=== PATIENT | female | born 1990 | race Hispanic/Latino ===

== ENCOUNTER 2020-02-21 02:06 | Inpatient (IN) | payer SELFPAY ==
[2020-02-21 02:57] LABS: Absolute Lymphocytes (CBC) 0.4 K/uL (0.7-4.9); Basophils % 0.2 % (0-1.3); Hematocrit 38.7 % (36.0-45.0); Lymphocytes % 3.3 % (15.3-44.8); MPV 7.2 fL (7.6-11.3); RBC Red Blood Cell Count 4.19 M/uL (3.86-4.86)
[2020-02-21 03:04] LABS: Urine Blood 2+ (NEG); Urine Glucose NEGATIVE (NEG); Urine Protein 1+ (NEG)
[2020-02-21] MEDS ORDERED: NA CHLORIDE 0.9% 1,000 ML ONE (03:13)
[2020-02-21 03:14] LABS: Albumin 3.9 g/dL (3.4-5.0); Bilirubin Direct 0.2 mg/dL (0-0.2); Potassium 3.4 mmol/L (3.5-5.1); Protein, Total 7.8 g/dL (6.4-8.2)
[2020-02-21 03:22] LABS: Blood Morphology Comment NOT SEEN (NOT SEEN); Platelet Estimate ADEQ
[2020-02-21] MEDS ORDERED: ACETAMINOPHEN 500 MG TAB ONE (03:44)
[2020-02-21] MEDS ORDERED: FAMOTIDINE 20 MG/2 ML VIAL IV ONE (03:44)
[2020-02-21] MEDS ORDERED: MORPHINE 2 MG/ML SYR ONE ×3 (03:44→11:09)
[2020-02-21] MEDS ORDERED: ONDANSETRON 4 MG/2 ML VIAL ONE ×3 (03:44→11:09)
[2020-02-21] MEDS ORDERED: PIPER/TAZO/NS 3.375gm 3.375 GM/100 ML BAG ONE (03:44)
--- NOTE | 2020-02-21 04:50 | ER ---
Nurse's Notes [facility] Name: Tina Navarrete Age: 29 yrs Sex: Female : 1990 Arrival Date: 02/21/2020 Time: 02:10 Bed 7 Private MD: Diagnosis: Abdominal tenderness;Acute tubulo-interstitial nephritis;Bandemia;Elevated white blood cell count;Hypokalemia;Fever, unspecified Presentation: 02/20 02:28 Chief complaint: Patient states: i have RUQ pain radiating to my back started today. i mg2 took aspirin \T\ 1700H. i felt that I have fever as well because i was shaking, Im also nauseated. I have history of pancreatitis a year ago. Coronavirus screen: Client denies travel out of the [place] in the last 14 days. Ebola Screen: No symptoms or risks identified at this time. Initial Sepsis Screen: Does the patient meet any 2 criteria? Temp <36.0*C (96.8*F)) or > 38.3*C (100.9*F). HR > 90 bpm. Does the patient have a suspected source of infection? Yes: Acute abdominal pain. Risk Assessment: Do you want to hurt yourself or someone else? Patient reports no desire to harm self or others. Onset of symptoms was February 20, 2020. 02:28 Method Of Arrival: Ambulatory mg2 02:28 Acuity: DEISY 2 mg2 Historical: - Allergies: 02:32 No Known Allergies; mg2 - Home Meds: 02:32 None [Active]; mg2 - PMHx: 02:32 Pancreatitis; single kidney; mg2 - PSHx: 02:32 scoliosis; mg2 - Immunization history:: Flu vaccine is up to date. - Social history:: Smoking status: Patient denies any tobacco usage or history of. Patient uses alcohol, occasionally. Patient/guardian denies using street drugs, IV drugs. - Family history:: not pertinent. Screenin:44 Abuse screen: Denies threats or abuse. Denies injuries from another. Nutritional mg2 screening: No deficits noted. Tuberculosis screening: No symptoms or risk factors identified. Fall Risk. Assessment: 02:43 General: code sepsis called. mg2 02:50 General: Appears in no apparent distress. uncomfortable, Behavior is calm, cooperative, jb4 appropriate for age. Pain: Complains of pain in right upper quadrant Pain does not radiate. Pain currently is 10 out of 10 on a pain scale. Quality of pain is described as stabbing. Neuro: Level of Consciousness is awake, alert, obeys commands, Oriented to person, place, time, situation. Cardiovascular: Patient's skin is warm and dry. Respiratory: Airway is patent Respiratory effort is even, unlabored, Respiratory pattern is regular, symmetrical. GI: Abdomen is flat, non-distended, Bowel sounds present X 4 quads. Abdomen is tender to palpation in right upper quadrant. : No signs and/or symptoms were reported regarding the genitourinary system. EENT: No signs and/or symptoms were reported regarding the EENT system. Derm: Skin is intact, Skin is pink, warm \T\ dry. Musculoskeletal: Circulation, motion, and sensation intact. Range of motion: intact in all extremities. 04:00 Reassessment: Patient appears in no apparent distress at this time. Patient and/or jb4 family updated on plan of care and expected duration. Pain level reassessed. Patient is alert, oriented x 3, equal unlabored respirations, skin warm/dry/pink. 05:00 Reassessment: Patient appears in no apparent distress at this time. Patient and/or jb4 family updated on plan of care and expected duration. Pain level reassessed. Patient is alert, oriented x 3, equal unlabored respirations, skin warm/dry/pink. Patient states feeling better. 06:00 Reassessment: Patient appears in no apparent distress at this time. Patient and/or jb4 family updated on plan of care and expected duration. Pain level reassessed. Patient is alert, oriented x 3, equal unlabored respirations, skin warm/dry/pink. 07:00 Reassessment: Patient appears in no apparent distress at this time. Patient and/or ph family updated on plan of care and expected duration. Pain level reassessed. Patient is alert, oriented x 3, equal unlabored respirations, skin warm/dry/pink. 08:30 Reassessment: Patient appears in no apparent distress at this time. Patient and/or ph family updated on plan of care and expected duration. Pain level reassessed. Patient is alert, oriented x 3, equal unlabored respirations, skin warm/dry/pink. 09:30 Reassessment: Patient appears in no apparent distress at this time. Patient and/or ph family updated on plan of care and expected duration. Pain level reassessed. Patient is alert, oriented x 3, equal unlabored respirations, skin warm/dry/pink. 11:00 Reassessment: Patient appears in no apparent distress at this time. Patient and/or ph family updated on plan of care and expected duration. Pain level reassessed. Patient is alert, oriented x 3, equal unlabored respirations, skin warm/dry/pink. Awaiting room assignment. 13:48 Reassessment: Patient appears in no apparent distress at this time. Patient and/or ph family updated on plan of care and expected duration. Pain level reassessed. Patient is alert, oriented x 3, equal unlabored respirations, skin warm/dry/pink. Vital Signs: 02:28 BP 109 / 86; Pulse 126; Resp 18; Temp 100.7; Pulse Ox 98% on R/A; Weight 34.47 kg; mg2 Height 4 ft. 11 in. (149.86 cm); Pain 10/10; 03:20 BP 112 / 73; Pulse 113; Resp 16; Pulse Ox 100% on R/A; jb4 05:00 BP 117 / 85; Pulse 119; Resp 18; Temp 100.2(TE); Pulse Ox 98% on R/A; jb4 06:00 BP 118 / 64; Pulse 85; Resp 16; Pulse Ox 98% on R/A; jb4 06:34 Temp 98.4(O); ar5 09:18 BP 83 / 66; Pulse 76; Resp 18; Pulse Ox 99% on R/A; ph 10:00 BP 95 / 65; Pulse 78; Resp 18; Pulse Ox 97% on R/A; ph 11:05 BP 107 / 70; Pulse 74; Resp 18; Pulse Ox 98% on R/A; ph 12:30 BP 109 / 78; Pulse 79; Resp 18; Temp 98.6; Pulse Ox 99% on R/A; ph 02:28 Body Mass Index 15.35 (34.47 kg, 149.86 cm) mg2 ED Course: 02:10 Patient arrived in ED. ag3 02:12 Fito Patiño MD is Attending Physician. lino 02:31 Triage completed. mg2 02:31 Arm band placed on. mg2 02:57 Landon Camacho, RN is Primary Nurse. jb4 03:24 Inserted saline lock: 20 gauge in right antecubital area, using aseptic technique. jb4 03:43 Chest Single View XRAY In Process Unspecified. EDMS 04:28 CT Abd/Pelvis - IV Contrast Only In Process Unspecified. EDMS 04:47 Chavez Parada MD is Hospitalizing Provider. lino 05:52 Emory Rose is Hospitalizing Provider. lino 07:08 US Abdomen Limited In Process Unspecified. EDMS 11:06 Patient has correct armband on for positive identification. Placed in gown. Bed in low ph position. Call light in reach. Side rails up X 1. Pulse ox on. NIBP on. Door closed. Noise minimized. Visitors limited. Warm blanket given. 11:06 No provider procedures requiring assistance completed. Patient admitted, IV remains in ph place. Administered Medications: 03:23 Drug: NS 0.9% 1000 ml Route: IV; Rate: 1 bolus; Site: right antecubital; jb4 04:45 Follow up: Response: No adverse reaction; IV Status: Completed infusion jb4 03:50 Drug: Tylenol 15 mg/kg Route: PO; jb4 05:00 Follow up: Response: No adverse reaction; Pain is decreased jb4 03:50 Drug: Zofran (Ondansetron) 4 mg Route: IVP; Site: right antecubital; jb4 04:10 Follow up: Response: No adverse reaction jb4 03:50 Drug: Pepcid 20 mg Route: IVP; Site: right antecubital; jb4 04:10 Follow up: Response: No adverse reaction jb4 03:52 Drug: morphine 2 mg {Note: Rass score 0.} Route: IVP; Site: right antecubital; jb4 04:15 Follow up: Response: No adverse reaction; Pain is decreased; RASS: Alert and Calm (0) jb4 03:53 Drug: Zosyn 3.375 grams Route: IVPB; Infused Over: 60 mins; Site: right antecubital; jb4 05:26 Drug: Zofran (Ondansetron) 4 mg Route: IVP; Site: right antecubital; jb4 06:08 Follow up: Response: No adverse reaction; Nausea is decreased jb4 05:28 Drug: morphine 2 mg Route: IVP; Site: right antecubital; jb4 06:08 Follow up: Response: No adverse reaction; Pain is decreased; RASS: Alert and Calm (0) [facility] 05:30 Drug: NS 0.9% with KCl 20 mEq/L 1000 ml Route: IV; Rate: 100 ml/hr; Site: right jb4 antecubital; 13:49 Follow up: Response: No adverse reaction; IV Status: Infusion continued upon admission ph 11:03 Drug: Zofran (Ondansetron) 4 mg Route: IVP; Site: right antecubital; ph 13:49 Follow up: Response: No adverse reaction; Nausea is decreased ph 11:05 Drug: morphine 2 mg Route: IVP; Site: right antecubital; ph 13:49 Follow up: Response: No adverse reaction; Pain is decreased ph Outcome: 04:49 Decision to Hospitalize by Provider. [facility] 13:48 Patient left the ED. ph Signatures: Dispatcher [employer] EDMS Fito Patiño MD MD cha Hall, Patricia, RN RN Landon Camacho RN RN jb4 Tiburcio Smith RN RN [facility] Dipti Yeager 3 Ester Sepulveda ar5
--- NOTE | 2020-02-21 04:50 | EDPHYS ---
Physician Documentation [facility] Name: Tina Navarrete Age: 29 yrs Sex: Female : 1990 Arrival Date: 02/21/2020 Time: 02:10 Bed 7 Private MD: DAVON Physician Fito Patiño HPI: 02/20 03:17 This 29 yrs old Female presents to ER via Ambulatory with complaints of lino Abdominal Pain. 03:17 The patient presents with abdominal pain in the epigastric area, in the upper abdomen. lino Onset: The symptoms/episode began/occurred 2 day(s) ago. The symptoms do not radiate. Associated signs and symptoms: Pertinent positives: nausea and vomiting. Modifying factors: The symptoms are alleviated by nothing, the symptoms are aggravated by coughing, food, movement, pressure, touching the area, walking. Severity of pain: At its worst the pain was moderate in the emergency department the pain is unchanged. The patient has experienced similar episodes in the past, a few times. Historical: - Allergies: 02:32 No Known Allergies; mg2 - Home Meds: 02:32 None [Active]; mg2 - PMHx: 02:32 Pancreatitis; single kidney; mg2 - PSHx: 02:32 scoliosis; mg2 - Immunization history:: Flu vaccine is up to date. - Social history:: Smoking status: Patient denies any tobacco usage or history of. Patient uses alcohol, occasionally. Patient/guardian denies using street drugs, IV drugs. - Family history:: not pertinent. ROS: 03:17 Constitutional: Negative for fever, chills, and weight loss, Eyes: Negative for injury, lino pain, redness, and discharge, ENT: Negative for injury, pain, and discharge, Neck: Negative for injury, pain, and swelling, Cardiovascular: Negative for chest pain, palpitations, and edema, Respiratory: Negative for shortness of breath, cough, wheezing, and pleuritic chest pain, Back: Negative for injury and pain, : Negative for injury, bleeding, discharge, and swelling, MS/Extremity: Negative for injury and deformity, Skin: Negative for injury, rash, and discoloration, Neuro: Negative for headache, weakness, numbness, tingling, and seizure, Psych: Negative for depression, anxiety, suicide ideation, homicidal ideation, and hallucinations, Allergy/Immunology: Negative for hives, rash, and allergies, Endocrine: Negative for neck swelling, polydipsia, polyuria, polyphagia, and marked weight changes, Hematologic/Lymphatic: Negative for swollen nodes, abnormal bleeding, and unusual bruising. 03:17 Abdomen/GI: Positive for abdominal pain, nausea and vomiting, of the epigastric area, right upper quadrant and left upper quadrant. Exam: 03:17 Head/Face: Normocephalic, atraumatic. Eyes: Pupils equal round and reactive to light, lino extra-ocular motions intact. Lids and lashes normal. Conjunctiva and sclera are non-icteric and not injected. Cornea within normal limits. Periorbital areas with no swelling, redness, or edema. ENT: Nares patent. No nasal discharge, no septal abnormalities noted. Tympanic membranes are normal and external auditory canals are clear. Oropharynx with no redness, swelling, or masses, exudates, or evidence of obstruction, uvula midline. Mucous membranes moist. Neck: Trachea midline, no thyromegaly or masses palpated, and no cervical lymphadenopathy. Supple, full range of motion without nuchal rigidity, or vertebral point tenderness. No Meningismus. Chest/axilla: Normal chest wall appearance and motion. Nontender with no deformity. No lesions are appreciated. Respiratory: Lungs have equal breath sounds bilaterally, clear to auscultation and percussion. No rales, rhonchi or wheezes noted. No increased work of breathing, no retractions or nasal flaring. Back: No spinal tenderness. No costovertebral tenderness. Full range of motion. Female : Normal external genitalia. Skin: Warm, dry with normal turgor. Normal color with no rashes, no lesions, and no evidence of cellulitis. MS/ Extremity: Pulses equal, no cyanosis. Neurovascular intact. Full, normal range of motion. Neuro: Awake and alert, GCS 15, oriented to person, place, time, and situation. Cranial nerves II-XII grossly intact. Motor strength 5/5 in all extremities. Sensory grossly intact. Cerebellar exam normal. Normal gait. 03:17 Constitutional: The patient appears febrile. 03:17 Cardiovascular: Rate: tachycardic, Rhythm: regular, Pulses: Pulses are 4+ in bilateral radial, brachial, femoral, popliteal, posterior tibial and and dorsalis pedis arteries.. Heart sounds: normal, Edema: is not appreciated, JVD: is not appreciated. 03:17 Abdomen/GI: Inspection: distension, Bowel sounds: active, Palpation: moderate abdominal tenderness, in the right upper quadrant, left upper quadrant and right lower quadrant, Liver: tenderness, that is moderate, Hernia: not appreciated. Vital Signs: 02:28 BP 109 / 86; Pulse 126; Resp 18; Temp 100.7; Pulse Ox 98% on R/A; Weight 34.47 kg; mg2 Height 4 ft. 11 in. (149.86 cm); Pain 10/10; 03:20 BP 112 / 73; Pulse 113; Resp 16; Pulse Ox 100% on R/A; jb4 05:00 BP 117 / 85; Pulse 119; Resp 18; Temp 100.2(TE); Pulse Ox 98% on R/A; jb4 06:00 BP 118 / 64; Pulse 85; Resp 16; Pulse Ox 98% on R/A; jb4 06:34 Temp 98.4(O); ar5 09:18 BP 83 / 66; Pulse 76; Resp 18; Pulse Ox 99% on R/A; ph 10:00 BP 95 / 65; Pulse 78; Resp 18; Pulse Ox 97% on R/A; ph 11:05 BP 107 / 70; Pulse 74; Resp 18; Pulse Ox 98% on R/A; ph 12:30 BP 109 / 78; Pulse 79; Resp 18; Temp 98.6; Pulse Ox 99% on R/A; ph 02:28 Body Mass Index 15.35 (34.47 kg, 149.86 cm) mg2 MDM: 02:44 Patient medically screened. lino 03:20 Differential diagnosis: appendicitis, bowel obstruction, cholecystitis, Cholelithiasis, lino diverticulitis, Mesenteric ischemia or infarction, non-specific abd pain, pancreatitis, Peptic Ulcer Disease, Perf. Duodenal Ulcer, Perf. Gastric Ulcer, Peritonitis, Ureterolithiasis, urinary tract infection. Data reviewed: vital signs, nurses notes, lab test result(s), radiologic studies. 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 Test interpretation: by ED physician or midlevel provider: plain radiologic studies. Counseling: I had a detailed discussion with the patient and/or guardian regarding: the historical points, exam findings, and any diagnostic results supporting the discharge/admit diagnosis, lab results, radiology results. 02/20 02:13 Order name: Basic Metabolic Panel; Complete Time: 03:22 [facility] 02/20 02:13 Order name: CBC with Diff; Complete Time: 03:22 [facility] 02/20 02:13 Order name: Hepatic Function; Complete Time: 03:22 [facility] 02/20 02:13 Order name: Lipase; Complete Time: 03:22 [facility] 02/20 03:00 Order name: Manual Differential; Complete Time: 03:22 EDMS 02/20 03:03 Order name: Urine Dipstick--Ancillary (enter results) [facility] 02/20 03:03 Order name: Urine --Ancillary (enter results) [facility] 02/20 03:16 Order name: CT Abd/Pelvis - IV Contrast Only [facility] 02/20 03:22 Order name: Chest Single View XRAY [facility] 02/20 04:50 Order name: US Abdomen Limited [facility] 02/20 04:50 Order name: Urine Culture [facility] 02/20 02:13 Order name: IV Saline Lock; Complete Time: 03:29 [facility] 02/20 02:13 Order name: Labs collected and sent; Complete Time: 03:29 [facility] 02/20 02:13 Order name: Urine Dipstick-Ancillary (obtain specimen); Complete Time: 03:00 [facility] 02/20 02:13 Order name: Urine Test (obtain specimen); Complete Time: 03:00 [facility] 02/20 10:56 Order name: Diet Regular; Complete Time: 10:57 ph Administered Medications: 03:23 Drug: NS 0.9% 1000 ml Route: IV; Rate: 1 bolus; Site: right antecubital; jb4 04:45 Follow up: Response: No adverse reaction; IV Status: Completed infusion jb4 03:50 Drug: Tylenol 15 mg/kg Route: PO; jb4 05:00 Follow up: Response: No adverse reaction; Pain is decreased jb4 03:50 Drug: Zofran (Ondansetron) 4 mg Route: IVP; Site: right antecubital; jb4 04:10 Follow up: Response: No adverse reaction jb4 03:50 Drug: Pepcid 20 mg Route: IVP; Site: right antecubital; jb4 04:10 Follow up: Response: No adverse reaction jb4 03:52 Drug: morphine 2 mg {Note: Rass score 0.} Route: IVP; Site: right antecubital; jb4 04:15 Follow up: Response: No adverse reaction; Pain is decreased; RASS: Alert and Calm (0) [facility] 03:53 Drug: Zosyn 3.375 grams Route: IVPB; Infused Over: 60 mins; Site: right antecubital; 4 05:26 Drug: Zofran (Ondansetron) 4 mg Route: IVP; Site: right antecubital; 4 06:08 Follow up: Response: No adverse reaction; Nausea is decreased jb4 05:28 Drug: morphine 2 mg Route: IVP; Site: right antecubital; jb4 06:08 Follow up: Response: No adverse reaction; Pain is decreased; RASS: Alert and Calm (0) [facility] 05:30 Drug: NS 0.9% with KCl 20 mEq/L 1000 ml Route: IV; Rate: 100 ml/hr; Site: right [facility] antecubital; 13:49 Follow up: Response: No adverse reaction; IV Status: Infusion continued upon admission ph 11:03 Drug: Zofran (Ondansetron) 4 mg Route: IVP; Site: right antecubital; ph 13:49 Follow up: Response: No adverse reaction; Nausea is decreased ph 11:05 Drug: morphine 2 mg Route: IVP; Site: right antecubital; ph 13:49 Follow up: Response: No adverse reaction; Pain is decreased ph Disposition: 02/21/20 04:49 Hospitalization ordered by Emory Rose for Inpatient Admission. Preliminary diagnosis are Abdominal tenderness, Acute tubulo-interstitial nephritis, Bandemia, Elevated white blood cell count, Hypokalemia, Fever, unspecified. - Bed requested for Telemetry/MedSurg (Inpatient). - Status is Inpatient Admission. ph - Condition is Fair. - Problem is new. - Symptoms have improved. Signatures: Dispatcher [employer] EDMS Anna Ledezma Corey, MD MD cha Hall, Patricia, RN RN ph Bryson, James, RN RN jb4 Tiburcio Smith RN RN mg2 Corrections: (The following items were deleted from the chart) 04:59 04:49 Hospitalization Ordered by Chavez Parada MD for Inpatient Admission. Preliminary lino diagnosis is Abdominal tenderness; Acute tubulo-interstitial nephritis; Bandemia; Elevated white blood cell count; Hypokalemia. Bed requested for Telemetry/MedSurg (Inpatient). Status is Inpatient Admission. Condition is Fair. Problem is new. Symptoms have improved. [facility] 05:52 04:59 02/21/2020 04:49 Hospitalization Ordered by Chavez Parada MD for Inpatient lino Admission. Preliminary diagnosis is Abdominal tenderness; Acute tubulo-interstitial nephritis; Bandemia; Elevated white blood cell count; Hypokalemia; Fever, unspecified. Bed requested for Telemetry/MedSurg (Inpatient). Status is Inpatient Admission. Condition is Fair. Problem is new. Symptoms have improved. [facility] 12:47 05:52 02/21/2020 04:49 Hospitalization Ordered by Emory Rose for Inpatient bd Admission. Preliminary diagnosis is Abdominal tenderness; Acute tubulo-interstitial nephritis; Bandemia; Elevated white blood cell count; Hypokalemia; Fever, unspecified. Bed requested for Telemetry/MedSurg (Inpatient). Status is Inpatient Admission. Condition is Fair. Problem is new. Symptoms have improved. [facility] 13:48 12:47 02/21/2020 04:49 Hospitalization Ordered by Emory Rose for Inpatient ph Admission. Preliminary diagnosis is Abdominal tenderness; Acute tubulo-interstitial nephritis; Bandemia; Elevated white blood cell count; Hypokalemia; Fever, unspecified. Bed requested for Telemetry/MedSurg (Inpatient). Status is Inpatient Admission. Condition is Fair. Problem is new. Symptoms have improved. bd
[2020-02-21] MEDS ORDERED: NS KCL 20MEQ 1,000 ML IV ONE (05:06)
[2020-02-21] MEDS ORDERED: IBUPROFEN 100 MG/5 ML UCUP ONE (05:27)
--- NOTE | 2020-02-21 07:20 | RAD REPORT ---
EXAM DESCRIPTION: [place] Single View02/21/2020 3:43 am CLINICAL HISTORY: Abdominal pain COMPARISON: 2011 FINDINGS: The lungs appear clear of acute infiltrate. The heart is normal size. Hoffman rods tra verse the thoracic and lumbar spine IMPRESSION: No acute abnormalities displayed
--- NOTE | 2020-02-21 08:20 | RAD REPORT ---
EXAM DESCRIPTION: US - Abdomen Exam Limited - 02/21/2020 7:08 am CLINICAL HISTORY: Abdominal pain. COMPARISON: None. FINDINGS: The gallbladder wall is not thickened. A gallstone is not seen. Small amount of gallbladd er sludge. Gallbladder is upper limits normal caliber. The biliary tree is normal caliber. IMPRESSION: Small amount of gallbladder sludge
--- NOTE | 2020-02-21 12:31 | P.HP ---
Certification for Inpatient Patient admitted to: Observation With expected LOS: <2 Midnights Practitioner: I am a practitioner with admitting privileges, knowledge of patient current condition, hospital course, and medical plan of care. Services: Services provided to patient in accordance with Admission requirements found in Title 42 Section 412.3 of the Code of Federal Regulations Patient History Date of Service: 02/21/20 Reason for admission: Right flank pain History of Present Illness: 29-year-old woman with a history of solitary kidney presented emergency department with a complaint of right flank pain of onset last night. Patient described the colicky pain, maximum intensity 8/10, radiating to the lower abdomen. She denies dysuria or urinary frequency. She endorsed fever and chills and rigors. Patient noted to have leukocytosis in the ED, febrile with a temperature of 100.7 and tachycardic meeting the criteria for sepsis. CT scan of the abdomen and pelvis showed findings consistent with acute pyelonephritis. Patient admitted for further management. Allergies No Known Allergies Allergy (Unverified 02/21/20 10:55) - Past Medical/Surgical History -: History of pancreatitis -: Scoliosis -: Back surgery for scoliosis - Family History Mother -: Other (see notes) (Solitary kidney) - Social History Smoking Status: Never smoker Alcohol use: Yes CD- Drugs: No Review of Systems Other: Except as documented, all other systems reviewed and negative. Physical Examination - Physical Exam General: Alert, In no apparent distress, Oriented x3 HEENT: Mucous membr. moist/pink Neck: Supple, JVD not distended Respiratory: Clear to auscultation bilaterally, Normal air movement, Crackles/rales Cardiovascular: No edema, Regular rate/rhythm, Normal S1 S2 Gastrointestinal: Normal bowel sounds, Soft and benign, Non-distended, No tenderness Musculoskeletal: Other (Right costovertebral angle tenderness) Integumentary: No rashes Neurological: Normal gait, Normal strength at 5/5 x4 extr, Cranial nerves 3-12 intact - Studies Laboratory Data (last 24 hrs) 02/21/20 02:45: WBC 13.5 H, Hgb 13.1, Hct 38.7, Plt Count 179 02/21/20 02:45: Sodium 138, Potassium 3.4 L, BUN 11, Creatinine 0.84, Glucose 107 H, Total Bilirubin 1.0, AST 13 L, ALT 14, Alkaline Phosphatase 52, Lipase 179 Assessment and Plan - Problems (Diagnosis) (1) Sepsis Current Visit: Yes Status: Acute (2) Acute pyelonephritis Current Visit: Yes Status: Acute - Plan Admit to the medical floor. Continue IV Rocephin which was given in the ED. Follow blood cultures and urine culture. Pain management as needed with IV morphine IV hydration. Monitor renal function and CBC. - Advance Directives Does patient have a Living Will: No Does patient have a Durable POA for Healthcare: No
[2020-02-21] MEDS: ENOXAPARIN 40 MG/0.4 ML SQ SCH (13:36)
[2020-02-21] MEDS ORDERED: MORPHINE 2 MG/ML SYR IV PRN (13:36)
[2020-02-21] MEDS ORDERED: ONDANSETRON 4 MG/2 ML VIAL IV PRN (13:36)
[2020-02-21] MEDS ORDERED: POTASSIUM CL SA 10 MEQ TAB PO ONE (13:53)
[2020-02-21 14:09] VITALS: BMI 11.0
[2020-02-21] MEDS: NA CHLORIDE 0.9% 1,000 ML IV SCH (14:12)
[2020-02-21] MEDS: CEFTRIAXONE/SWI 1gm 1 GM/10 ML SYR IV SCH (14:15)
--- NOTE | 2020-02-21 17:39 | RAD REPORT ---
EXAM DESCRIPTION: CT - Abdomen Pelvis W Contrast - 02/21/2020 6:41 am CLINICAL HISTORY: The patient is 29 years old and is Female; ABD PAIN TECHNIQUE: Axial computed tomography images of the abdomen and pelvis with intravenous contrast. S agittal and coronal reformatted images were created and reviewed. This CT exam was performed using one or more of the following dose reduction techniques: automated exposure control, adjustment of t he mA and/or kV according to patient size, and/or use of iterative reconstruction technique. COMPARISON: No relevant prior studies available. FINDINGS: Limitations: Evaluation limited by metal streak artifact from spinal hardware. Lung bases: Unremarkable. No mass. No consolidation. ABDOMEN: Liver: Unremarkable. No mass. Gallbladder and bile ducts: Unremarkable. No calcified stones. No ductal dilation. Pancreas: No findings to suggest acute pancreatitis. No mass visualized. No ductal dilation. Spleen: Unremarkable. No splenomegaly. Adrenals: Unremarkable. No mass. Kidneys and ureters: Solitary right kidney. Prominent right renal pelvis bonilla. No hydronephrosis or ureter stone visualized. Stomach and bowel: No bowel dilatation or obstruction. No bowel wall thickening. Stomach is collapsed. PELVIS: Appendix: The visualized appendix is unremarkable. Bladder: Unremarkable. No mass. Reproductive: 1.6 cm left ovarian corpus luteum. Uterus is small or removed. ABDOMEN and PELVIS: Intraperitoneal space: Unremarkable. No free air. No significant fluid collection. Bones/joints: Scoliosis with concavity to the right. Extensive thoracolumbar spinal hardware. Ri ght iliac donor site. Bilateral L5 spondylolysis. Soft tissues: Unremarkable. Vasculature: Unremarkable. No abdominal aortic aneurysm. Lymph nodes: No pathologically enlarged lymph nodes. IMPRESSION: 1. Evaluation limited by metal streak artifact from spinal hardware, particularly the area of the right kidney. 2. Solitary right kidney. Prominent right renal pelvis bonilla. Correlate clinically for infection/ U TI. 3. 1.6 cm left ovarian corpus luteum. No follow-up imaging is recommended. Reference: J Am Ibeth Radiol 2013;10:675-681 4. Additional non-emergent findings as above. Electronically signed by: Viridiana Espinoza MD 02/21/2020 4:39 AM CDT Due to temporary technical issues with the PACS/Fluency reporting system, reports are being signed by the in house radiologist without review as a courtesy to ensure prompt reporting. The interpreting r adiologist is fully responsible for the content of the report.
[2020-02-21] MEDS: ACETAMINOPHEN 500 MG TAB PO PRN (18:28)
[2020-02-22] MEDS: NA CHLORIDE 0.9% 1,000 ML IV SCH ×3 (00:10→20:18)
[2020-02-22 04:48] LABS: Urine Appearance CLEAR; Urine Bilirubin NEGATIVE (NEG); Urine Blood 1+ (NEG); Urine Color YELLOW; Urine Glucose NEGATIVE (NEG); Urine Protein NEGATIVE (NEG); Urine Specific Gravity <=1.005 (1.005-1.030); Urine Urobilinogen 0.2 mg/dL (0.2-1.0)
[2020-02-22 04:53] LABS: Urine Microscopic Reflex ORDER UMIC
[2020-02-22 05:02] LABS: Urine Bacteria <20 /HPF (<20); Urine Culture Reflex Order NOT NEEDED
[2020-02-22 06:02] LABS: Absolute Lymphocytes (CBC) 0.5 K/uL (0.7-4.9); Basophils % 0.2 % (0-1.3); Hematocrit 32.4 % (36.0-45.0); Lymphocytes % 6.8 % (15.3-44.8); MPV 7.7 fL (7.6-11.3); RBC Red Blood Cell Count 3.48 M/uL (3.86-4.86)
[2020-02-22 06:21] LABS: BUN Blood Urea Nitrogen 8 mg/dL (7-18); Bicarbonate 22 mmol/L (21-32); Glucose Level 84 mg/dL (74-106); Magnesium 1.8 mg/dL (1.8-2.4); Phosphorus 1.8 mg/dL (2.5-4.9); Potassium 4.3 mmol/L (3.5-5.1); Sodium Level 142 mmol/L (136-145)
[2020-02-22] MEDS ORDERED: POTASS/SODIUM PHOSPHATE 1 PKT POWD.PACK PO SCH (07:00)
[2020-02-22] MEDS: POTASS/SODIUM PHOSPHATE 1 PKT POWD.PACK PO SCH ×3 (08:09→11:00)
[2020-02-22] MEDS: CEFTRIAXONE/SWI 1gm 1 GM/10 ML SYR IV SCH (08:09)
[2020-02-22] MEDS: ENOXAPARIN 40 MG/0.4 ML SQ SCH (08:10)
[2020-02-22] MEDS: ACETAMINOPHEN 500 MG TAB PO PRN ×2 (08:12→17:55)
[2020-02-22] MEDS ORDERED: MAGNESIUM SULFATE 1 gm IVPB 1 GM/100 ML BAG IV ONE (09:00)
--- NOTE | 2020-02-22 11:42 | P.PN ---
Subjective Date of Service: 02/22/20 Chief Complaint: Right flank pain Patient complaining of persistent right flank pain but better than yesterday. No fever over the past 24 hrs. She is eating well Physical Examination - Vital Signs Temperature: 99.0 F Blood Pressure: 100/55 Pulse: 84 Respirations: 16 Pulse Ox (%): 98 - Physical Exam General: Alert, In no apparent distress Neck: Supple Respiratory: Clear to auscultation bilaterally, Normal air movement Cardiovascular: No edema, Regular rate/rhythm, Normal S1 S2 Gastrointestinal: Normal bowel sounds, Soft and benign, No tenderness Musculoskeletal: No swelling, No erythema Integumentary: No rashes Assessment And Plan - Current Problems (Diagnosis) (1) Sepsis Current Visit: Yes Status: Acute (2) Acute pyelonephritis Current Visit: Yes Status: Acute - Plan Urine culture is growing Gram negative rods. Continue IV Rocephin. Follow blood cultures and urine culture. Pain management as needed with IV morphine IV hydration. Monitor renal function and CBC.
[2020-02-23] MEDS: NA CHLORIDE 0.9% 1,000 ML IV SCH (05:33)
[2020-02-23 05:38] LABS: BUN Blood Urea Nitrogen 5 mg/dL (7-18); Bicarbonate 25 mmol/L (21-32); Glucose Level 88 mg/dL (74-106); Magnesium 1.7 mg/dL (1.8-2.4); Phosphorus 2.6 mg/dL (2.5-4.9); Potassium 3.8 mmol/L (3.5-5.1); Sodium Level 140 mmol/L (136-145)
[2020-02-23] MEDS: CEFTRIAXONE/SWI 1gm 1 GM/10 ML SYR IV SCH (08:07)
[2020-02-23] MEDS: ENOXAPARIN 40 MG/0.4 ML SQ SCH (08:11)
[2020-02-23] MEDS ORDERED: MAGNESIUM SULFATE 1 gm IVPB 1 GM/100 ML BAG IV ONE (09:00)
[2020-02-23] MEDS ORDERED: POTASSIUM CL SA 10 MEQ TAB PO ONE (09:00)
[2020-02-23 09:46] VITALS: BP 98/61; TEMP 98.8
[2020-02-23 10:03] VITALS: O2SAT 99
--- NOTE | 2020-02-23 10:29 | P.DS ---
Admission Date: 02/21/20 Discharge Date: 02/23/20 Disposition: ROUTINE DISCHARGE Discharge Condition: FAIR Reason for Admission: Right flank pain - Problems (1) Sepsis Current Visit: Yes Status: Acute (2) Acute pyelonephritis Current Visit: Yes Status: Acute Brief History of Present Illness: 29-year-old woman with a history of solitary kidney presented emergency department with a complaint of right flank pain of onset last night. Patient described the colicky pain, maximum intensity 8/10, radiating to the lower abdomen. She denies dysuria or urinary frequency. She endorsed fever and chills and rigors. Patient noted to have leukocytosis in the ED, febrile with a temperature of 100.7 and tachycardic meeting the criteria for sepsis. CT scan of the abdomen and pelvis showed findings consistent with acute pyelonephritis. Patient admitted for further management. Hospital Course: Patient admitted to the medical floor and treated with IV Rocephin. She was also hydrated with IV normal saline. Urine culture grew pansensitive E. coli. Patient's symptoms resolved with treatment. She is discharged with Omnicef to complete 10 days of treatment for pyelonephritis. She was informed to find a PCP for follow up. Vital Signs/Physical Exam: Temp Pulse Resp BP Pulse Ox 98.8 F 75 15 98/61 99 02/23/20 08:00 02/23/20 08:00 02/23/20 08:00 02/23/20 08:00 02/23/20 08:00 General: Alert, In no apparent distress HEENT: Mucous membr. moist/pink Neck: Supple Respiratory: Clear to auscultation bilaterally, Normal air movement Cardiovascular: No edema, Regular rate/rhythm, Normal S1 S2 Gastrointestinal: Normal bowel sounds, Soft and benign, No tenderness Musculoskeletal: No swelling, No erythema Integumentary: No rashes Laboratory Data at Discharge: WBC 8.0 K/uL (4.3-10.9) D 02/22/20 04:42 Hgb 11.0 g/dL (12.0-15.0) L 02/22/20 04:42 Hct 32.4 % (36.0-45.0) L D 02/22/20 04:42 Plt Count 123 K/uL (152-406) L D 02/22/20 04:42 Sodium 140 mmol/L (136-145) 02/23/20 04:51 Potassium 3.8 mmol/L (3.5-5.1) 02/23/20 04:51 BUN 5 mg/dL (7-18) L 02/23/20 04:51 Creatinine 0.58 mg/dL (0.55-1.3) 02/23/20 04:51 Glucose 88 mg/dL (74-106) 02/23/20 04:51 Phosphorus 2.6 mg/dL (2.5-4.9) 02/23/20 04:51 Magnesium 1.7 mg/dL (1.8-2.4) L 02/23/20 04:51 Total Bilirubin 1.0 mg/dL (0.2-1.0) 02/21/20 02:45 AST 13 U/L (15-37) L 02/21/20 02:45 ALT 14 U/L (12-78) 02/21/20 02:45 Alkaline Phosphatase 52 U/L (45-117) 02/21/20 02:45 Lipase 179 U/L (73-393) 02/21/20 02:45 Home Medications: Cefdinir [Omnicef] 300 mg PO BID #14 capsule 02/23/20 New Medications: Cefdinir [Omnicef] 300 mg PO BID #14 capsule Diet: Regular Activity: Ad cadence Time spent managing pt's care (in minutes): 28
== END 2020-02-23 11:22 | disposition home or self-care (01) | DRG 872 ==
LOC: ER 02:06 → ERHOLD 09:11 → 2ND 13:32
PROVIDERS: ADMIT Internal Medicine; ATTEND Internal Medicine
DX: A41.9 Sepsis, unspecified organism (principal); N10 Acute pyelonephritis; B96.20 Unspecified Escherichia coli [E. coli] as the cause of diseases classified elsewhere
CPT/HCPCS: 36415; 71045; 74177; 76705; 80048; 80076; 81003; 81015; 81025; 83690; 83735; 84100; 84132; 85025; 87077; 87086; 87088; 87186; 96361; 96374; 96375; 99284; J0696; J1650; J2270; J2405; J2543; J3475; J7030; Q9967

== ENCOUNTER 2024-02-07 04:37 | Emergency (ER) | payer BC, SELFPAY ==
[2024-02-07] MEDS ORDERED: ACETAMINOPHEN 500 MG TAB ONE (05:26)
[2024-02-07] MEDS ORDERED: GUAIFENESIN/DM 5 ML UCUP ONE (05:27)
[2024-02-07] MEDS ORDERED: IBUPROFEN 200 MG TAB PO ONE (05:27)
[2024-02-07 05:57] LABS: SARS-CoV-2 Antigen CONTROL BLUE LINE VIS/BG OK; SARS-CoV-2 Antigen Rapid Res Negative (Negative)
--- NOTE | 2024-02-07 06:04 | ER ---
Nurse's Notes [facility] Name: Tina Navarrete Age: 33 yrs Sex: Female : 1990 Arrival Date: 02/07/2024 Time: 04:37 Bed 13 Private MD: Diagnosis: Acute systemic Viral illness, Acute Common Cold Presentation: 02/06 04:56 Chief complaint: Patient states: sore throat, fever, body aches and cough since 2 days kj2 ago. Coronavirus screen: At this time, the client does not indicate any symptoms associated with coronavirus-19. Ebola Screen: No symptoms or risks identified at this time. Initial Sepsis Screen: Does the patient meet any 2 criteria? No. Patient's initial sepsis screen is negative. Does the patient have a suspected source of infection? No. Patient's initial sepsis screen is negative. Risk Assessment: Do you want to hurt yourself or someone else? Patient reports no desire to harm self or others. Onset of symptoms was February 05, 2024. 04:56 Method Of Arrival: Ambulatory kj2 04:56 Acuity: DEISY 4 kj2 05:10 Coronavirus screen: Client denies travel out of the [place] in the last 14 days. At this kj2 time, the client does not indicate any symptoms associated with coronavirus-19. Ebola Screen: No symptoms or risks identified at this time. Triage Assessment: 05:04 General: Appears in no apparent distress. comfortable, Behavior is calm, cooperative. kj2 Pain: Denies pain. Complains of pain in throat. EENT: No deficits noted. Neuro: Level of Consciousness is awake, alert, Oriented to person, place, time, situation. Cardiovascular: Patient's skin is warm and dry. Respiratory: Airway is patent Respiratory effort is even, unlabored, Ventilator assessment:. GI: No signs and/or symptoms were reported involving the gastrointestinal system. : No signs and/or symptoms were reported regarding the genitourinary system. Derm: No signs and/or symptoms reported regarding the dermatologic system. 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 - Infectious Disease History:: Denies. - Social history:: Smoking status: Patient denies any tobacco usage or history of. - Family history:: not pertinent. Screenin:13 [facility] ED Fall Risk Assessment (Adult) History of falling in the last 3 months, kj2 including since admission No falls in past 3 months (0 pts) Confusion or Disorientation No (0 pts) Intoxicated or Sedated No (0 pts) Impaired Gait No (0 pts) Mobility Assist Device Used No (0 pt) Altered Elimination No (0 pt) Score/Fall Risk Level 0 - 2 = Low Risk. Abuse screen: Denies threats or abuse. Denies injuries from another. Nutritional screening: No deficits noted. Tuberculosis screening: No symptoms or risk factors identified. Assessment: 05:12 General: see triage assessment. Respiratory: Airway is patent Respiratory effort is kj2 even, unlabored. GI: No signs and/or symptoms were reported involving the gastrointestinal system. : No signs and/or symptoms were reported regarding the genitourinary system. 05:12 EENT: Throat is clear. kj2 05:12 Respiratory: Breath sounds with rhonchi bilaterally. kj2 Vital Signs: 04:56 BP 99 / 78; Pulse 85; Resp 18; Temp 98.4; Pulse Ox 100% on R/A; Weight 31.75 kg; Height kj2 4 ft. 10 in. ; 05:02 BP 99 / 78; Pulse 85; Resp 18; Temp 98.4; Pulse Ox 100% ; kj2 05:10 BP 99 / 78; Pulse 85; Resp 18; Temp 98; Pulse Ox 100% on R/A; kj2 06:40 BP 105 / 74; Pulse 72; Resp 18; Temp 98; Pulse Ox 100% on R/A; kj2 04:56 Body Mass Index 14.63 (31.75 kg, 147.32 cm) kj2 Helena Coma Score: 05:20 Eye Response: spontaneous(4). Motor Response: obeys commands(6). Verbal Response: sp4 oriented(5). Total: 15. ED Course: 04:41 Patient arrived in ED. jj6 04:55 Elin Gabriel, NING is Primary Nurse. kj2 04:57 Silverio Chaves MD is Attending Physician. sp4 05:01 Triage completed. kj2 05:09 Arm band placed on Patient placed in an exam room. kj2 05:12 Patient has correct armband on for positive identification. Bed in low position. Call kj2 light in reach. Provided Education on: call light, fall precautions. 05:12 No provider procedures requiring assistance completed. kj2 05:12 Patient did not have IV access during this emergency room visit. kj2 Administered Medications: 05:41 Drug: Ibuprofen PO 600 mg PO once Route: PO; kj2 06:27 Follow up: Response: No adverse reaction kj2 05:41 Drug: Dextromethorphan-Guaifenesin PO Liquid 10 mg-100 mg/5 mL 10 ml PO once Route: PO; kj2 06:26 Follow up: Response: No adverse reaction kj2 05:41 Drug: Acetaminophen PO 1000 mg PO once Route: PO; kj2 06:25 Follow up: Response: No adverse reaction kj2 Medication: 05:12 VIS not applicable for this client. kj2 Outcome: 06:03 Discharge ordered by . jamin 06:24 Discharged to home kj2 06:24 Condition: stable 06:24 Discharge instructions given to patient, Instructed on discharge instructions, follow up and referral plans. Demonstrated understanding of instructions, follow-up care, 06:41 Patient left the ED. kj2 Signatures: Molly Coleman jj6 Silverio Chaves MD MD sp4 Elin Gabriel, RN RN kj2
--- NOTE | 2024-02-07 06:04 | EDPHYS ---
Physician Documentation [facility] Name: Tina Navarrete Age: 33 yrs Sex: Female : 1990 Arrival Date: 02/07/2024 Time: 04:37 Bed 13 Private MD: ED Physician Silverio Chaves HPI: 02/06 04:57 This 33 yrs old Female presents to ER via Unassigned with complaints of Sore sp4 Throat, Fever, Cough, BODY ACHES. 05:20 33-year-old female presents with 2 days of fever, cough, body aches, sore throat. 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 - Infectious Disease History:: Denies. - Social history:: Smoking status: Patient denies any tobacco usage or history of. - Family history:: not pertinent. ROS: 05:20 Constitutional: Positive fever, positive cough, positive sore throat, positive body sp4 aches 05:20 All other systems are negative, Exam: 05:20 Constitutional: This is a well developed, well nourished patient who is awake, alert, sp4 and in no acute distress. Head/Face: Normocephalic, atraumatic. Eyes: Pupils equal round and reactive to light, extra-ocular motions intact. Lids and lashes normal. Conjunctiva and sclera are not injected. Cornea within normal limits. Periorbital areas with no swelling, redness, or edema. ENT: Nares patent. No nasal discharge, no septal abnormalities noted. Tympanic membranes are normal and external auditory canals are clear. Oropharynx with no redness, swelling, or masses, exudates, or evidence of obstruction, uvula midline. Mucous membranes moist. Neck: Trachea midline, no thyromegaly or masses palpated, and no cervical lymphadenopathy. Supple, full range of motion without nuchal rigidity, or vertebral point tenderness. Chest/axilla: Normal chest wall appearance and motion. Nontender with no deformity. No lesions are appreciated. Cardiovascular: Regular rate and rhythm with a normal S1 and S2. No gallops, murmurs, or rubs. Normal PMI, no JVD. No pulse deficits. Respiratory: Lungs have equal breath sounds bilaterally, clear to auscultation and percussion. No rales, rhonchi or wheezes noted. No increased work of breathing, no retractions or nasal flaring. Abdomen/GI: Soft, with normal bowel sounds. No distension or tympany. No guarding or rebound. No evidence of tenderness throughout. Back: No spinal tenderness. No costovertebral tenderness. Skin: Warm, dry with normal turgor. Normal color with no rashes, no lesions, and no evidence of cellulitis. MS/ Extremity: Pulses equal, no cyanosis. Neurovascular intact. Full, normal range of motion. Neuro: Awake and alert, GCS 15, oriented to person, place, time, and situation. Cranial nerves II-XII grossly intact. Motor strength 5/5 in all extremities. Sensory grossly intact. Psych: Awake, alert, with orientation to person, place and time. Behavior, mood, and affect are within normal limits Vital Signs: 04:56 BP 99 / 78; Pulse 85; Resp 18; Temp 98.4; Pulse Ox 100% on R/A; Weight 31.75 kg; Height kj2 4 ft. 10 in. ; 05:02 BP 99 / 78; Pulse 85; Resp 18; Temp 98.4; Pulse Ox 100% ; kj2 05:10 BP 99 / 78; Pulse 85; Resp 18; Temp 98; Pulse Ox 100% on R/A; kj2 06:40 BP 105 / 74; Pulse 72; Resp 18; Temp 98; Pulse Ox 100% on R/A; kj2 04:56 Body Mass Index 14.63 (31.75 kg, 147.32 cm) kj2 Charo Coma Score: 05:20 Eye Response: spontaneous(4). Motor Response: obeys commands(6). Verbal Response: sp4 oriented(5). Total: 15. MDM: 05:04 Patient medically screened. sp4 02/07 03:16 Differential diagnosis: apthous ulcer, bronchitis, echovirus infection, lori-lyle sp4 virus. Data reviewed: vital signs, nurses notes, lab test result(s). ED course: Discharge home stable for discharge home. 02/06 04:57 Order name: SARS RAPID; Complete Time: 05:58 sp4 02/06 04:57 Order name: Influenza Screen (a \T\ B); Complete Time: 05:58 sp4 Administered Medications: 02/06 05:41 Drug: Ibuprofen PO 600 mg PO once Route: PO; kj2 06:27 Follow up: Response: No adverse reaction kj2 05:41 Drug: Dextromethorphan-Guaifenesin PO Liquid 10 mg-100 mg/5 mL 10 ml PO once Route: PO; kj2 06:26 Follow up: Response: No adverse reaction kj2 05:41 Drug: Acetaminophen PO 1000 mg PO once Route: PO; kj2 06:25 Follow up: Response: No adverse reaction kj2 Disposition Summary: 02/07/24 06:03 Discharge Ordered Notes: Location: Home sp4 Problem: new sp4 Symptoms: have improved sp4 Condition: Stable sp4 Diagnosis - Acute systemic Viral illness, Acute Common Cold sp4 Followup: sp4 - With: Private Physician - When: 7 - 10 days - Reason: Recheck today's complaints Discharge Instructions: - Discharge Summary Sheet sp4 - Viral Illness, Adult sp4 Forms: - Patient Portal Instructions sp4 - Work release form kj2 Prescriptions: - dextromethorphan-guaifenesin 20-400 mg Oral tablet - take 1 tablet ORAL route every 6 hours PRN cough; 40 tablet; Refills: 0, sp4 Product Selection Permitted - ondansetron 4 mg Oral Tablet,disintegrating - take 1 tablet ORAL route every 6 hours for 3 days PRN nausea; 30 tablet; sp4 Refills: 0, Product Selection Permitted - Ibuprofen 600 mg Oral tablet - take 1 tablet ORAL route every 8 hours As needed take with food; 30 tablet; sp4 Refills: 0, Product Selection Permitted Signatures: Dispatcher [employer] Silverio Mckoy MD MD sp4 Elin Gabriel RN RN kj2
[2024-02-07 06:46] VITALS: O2SAT 100
[2024-02-07 06:49] VITALS: TEMP 98
[2024-02-07 06:50] VITALS: BP 105/74
== END 2024-02-07 06:41 | disposition home or self-care (01) ==
LOC: ER 04:37
DX: B34.9 Viral infection, unspecified (principal); J00 Acute nasopharyngitis [common cold]; Z11.52 Encounter for screening for COVID-19
CPT/HCPCS: 36415; 87804; 87811; 99283